=== PATIENT | female | born 1995 | race Caucasian/White ===

== ENCOUNTER 2022-12-01 06:00 | Day surgery (SDC) | payer MEDICAID, SELFPAY ==
--- NOTE | 2022-11-29 17:11 | PCM.HP.BLA ---
History and Physical Date of Admission: 12/01/22 Pre-Op History and Physical ? HPI: The patient is a 27 year old female presenting for pre-operative visit. She is scheduled for Bilateral labiaplasty, for Symptomatic labial hypertrophy on 12/01/22. Procedure discussed along with risks, benefits and complications. Other alternatives discussed for management. Consent form signed? Yes. ? ? PAST MEDICAL HISTORY PAST MEDICAL HISTORY Diagnosis Date ? Chronic ITP (idiopathic thrombocytopenia) (HCC) ? ? Concussion ? ? Hyperthyroidism ? ? ? PAST SURGICAL HISTORY PAST SURGICAL HISTORY Procedure Laterality Date ? NONE ? CURRENT MEDICATIONS Current Outpatient Medications Medication Sig Dispense Refill ? oxyCODONE IR (ROXICODONE) 5 mg immediate release tablet Take 1 tablet by mouth every 8 hours as needed for pain. 5 tablet 0 ? calcium citrate-vitamin D3 1,000 mg-10 mcg /30 mL liqd Take 15 mL three times daily 473 mL 3 ? levothyroxine (SYNTHROID) 88 mcg tablet TAKE 1 TABLET BY MOUTH ONCE DAILY AT 6 AM 90 tablet 0 ? calcium carbonate (TUMS) 500 mg chew Take 1 tablet by mouth every hour as needed (mouth or hand numbness or tingling). ? ? ? zkradaw-vyxfxfppn-ayqojnf D3 500 mg-5 mcg (200 unit) per tablet Take 1 tablet by mouth three times daily. ? ? ? No current facility-administered medications for this visit. ? ? ALLERGIES: Patient has no known allergies. ? PERSONAL HISTORY: SOCIAL HISTORY Social History ? Tobacco Use ? Smoking status: Never ? Smokeless tobacco: Never Vaping Use ? Vaping Use: Never used Substance Use Topics ? Alcohol use: Never ? Drug use: Never ? FAMILY HISTORY: FAMILY HISTORY FAMILY HISTORY Problem Relation Age of Onset ? Asthma Mother ? ? Thyroid Mother ? ? COPD Mother ? ? Diabetes Father ? ? other (thyroid) Father ? ? Heart Sister ? ? Thyroid Sister ? ? Diabetes Sister ? ? ? REVIEW OF SYMPTOMS: negative except as noted above PHYSICAL EXAMINATION: ? VITALS: Blood pressure 100/62, weight 123 lb (55.8 kg), last menstrual period 10/19/2022. ? GENERAL: The patient is well nourished, well hydrated in no acute distress. , The patient is oriented to time, place, and person. NECK: full range of motion LUNGS: Clear to auscultation bilaterally. no wheezes, rhonchi or rales HEART: Regular rate and rhythm, Normal heart sounds, and No murmurs or gallops ? ? IMPRESSION: 27yo with Symptomatic Labial hypertrophy ? PLAN: Bilateral labial hypertrophy ? Pt has been counseled on risks/benefits and alternatives of surgery including but not limited to anesthesia, bleeding, infection, formation of scar tissue, pain after surgery, dyspareunia. Discussed that we will try to make them as symmetrical as possible. Right labia more hypertrophied than the left. Patient wishes to proceed with surgery. Consent was signed. ? Oxycodone given for pain. We discussed pre and postop instructions. Discussed how to care for postoperative wound. Pressure and ice after procedure. ? CBC and HCG level today- missed menses. Dr. Das consulted regarding her ITP (after resulted CBC)- Agrees nothing pre or post op needs to be done as PLTS are wnl. ? ? I have reviewed and updated past medical and surgical history, medications and allergies Jaimie Augustin MD ?4:14 PM
[2022-12-01] VITALS (7 sets, daily range): BP systolic 87–116; BP diastolic 58–75; PULSE 53–73; RESP 16–18; TEMP 36.3–37.1; O2SAT 100; BMI 21.0
--- NOTE | 2022-12-01 | MISC_PTH ---
PATIENT: KIANA HASKINS LOC: [facility] [place] U#:[id number] AGE/SX: 27/F ROOM: RE12/01/[address]: Dr. Jaimie Aden, MDDOB: 1995 BED: DIS: 12/01/2022 SPEC #: [id number] RECD: 12/01/22 11:28 STATUS: FABY ELENA #: [id number] ULISSES: 12/01/22 00:[address]: Jaimie Aden DEPT: SURGICAL PATHOLOGY RECD BY: Dhaval Gupta ENTERED: 12/01/22 11:28 [place] [facility] [place]: Dr. Teddy Valenzuela MD Tissues: Lip, NOS (labia) Procedures: Surgery Specimen Level IV HEADER OPERATION: Labiaplasty PRE-OP DIAGNOSIS: Symptomatic labial hypertrophy TISSUE SUBMITTED: Bilateral labia MICROSCOPIC DIAGNOSIS Bilateral labia, labiaplasty: Pieces of skin with focal hyperkeratosis. JIAN:arely 12/02/2022 MICROSCOPIC DESCRIPTION Slides are reviewed. GROSS DESCRIPTION Received in fixative is one container labeled with the patient's name and designated bilateral labia. The specimen consists of two pieces of linder-light brown skin measuring 4.5 x 0.4 cm and up to 0.3 cm in thickness and 4.5 x 1.5 x 0.3 cm. No lesion is identified. Floor Helper sections are submitted in one cassette. / JIAN:arely 12/01/2022 TC:5 CPT: 87386
[2022-12-01] MEDS: Lactated Ringers 1,000 ML 15 ML IV (06:51)
[2022-12-01 06:58] LABS: Internal QC Validated? YES +Cl - CLEAR BKGD; Pregnancy, Urine Negative Negative
[2022-12-01] MEDS: Lidocaine 1% /Epi 1:100 (50ml) 50 ML VIAL (08:05)
--- NOTE | 2022-12-01 08:09 | DCINST_ITS ---
Discharge Instructions Diet Discharge Diet: No restrictions Activity Discharge Activity: Return to Normal Activity, May Shower and May Take a Tub Bath May resume sexual activity in: 2 weeks (after cleared by Dr. Augustin ) Lifting Restrictions: 25lb Dressing / Incision Call your doctor if your incision/area has: Continuous Slow Oozing, Sudden Increased Bleeding, Increased Pain/ Swelling, Increased Redness, Foul Smelling Discharge and Swelling at the incision site Call your doctor if you observe: Fever of 101 or Higher, Inability to urinate and Uncontrolled pain Cleanse incision/area with: Soap & Water Follow Up Care Please Follow Up With: Jaimie Aden MD When: as scheduled in 2 weeks Test Results: Test results from this visit will be discussed in further detail at your follow- up appointment, if applicable. Discharge Plan Admission Attending Provider: Jaimie Aden Primary Care Provider: Teddy Valenzuela Discharge Orders/Prescriptions Prescriptions: No Action calcium 600 mg Capsule 600 mg PO 4X/DAY levothyroxine 88 mcg tablet 88 mcg PO DAILY Label Comments: TAKE 1 TABLET BY MOUTH ONCE DAILY AT 6 AM cholecalciferol (vitamin D3) [Vitamin D3] 125 mcg (5,000 unit) Tablet 125 mcg PO DAILY Referrals / Follow Up: Teddy Valenzuela MD [Primary Care Provider] - Disposition Disposition (needs filled in before D/C Order can be placed): Home, Self Care
--- NOTE | 2022-12-01 08:11 | OP.PCM_ITS ---
Report of Operation Date of Procedure: 12/01/22 Pre-Operative Diagnosis: labial hypertrophy Post-Operative Diagnosis: same Surgery/Procedure Performed:: bilateral labial hypertrophy Description of Surgical Findings:: right labia larger then left Surgeon: Jaimie Aden Type of Anesthesia: Local and MAC Special Medications: 1% lidocaine with Epinephrine Specimen's removed: bilateral Labia minora Estimated Blood Loss (mL): 5cc Fluids Replaced: 600cc Description of Procedure: Pt was taken to the OR where MAC anesthesia was administered. pt was then placed in the [facility] stirrups. she was then prepped in normal sterile fashion. bladd er drained at beginning of procedure. Sterile drapes placed. At this time 1%lidocaine with epinephrine [id number] was injected on bilateral labia minora. At this time bilateral labia were marked. Allis clamps used to grasp tissue. Excess skin was then excised. The tissue will be sent to pathology for evualtion. at this time 3-0 rapide suture used to reapproximate bilateral labia minora edges in a running subcutaneous fashion. Excellent hemostasis appreciated. Lap, needle and instrument count were correct x 2. Vaginal sweep negative. Grafts/Implants Used: none Procedure Start Time: 07:40 Procedure Stop Time: 08:08 Complications none Admit VTE Documentation VTE Present on Admission: Yes VTE Mechan Device Prophylaxis: SCD's VTE Pharm Prophylaxis ordered?: No Reason prophylaxis not ordered:: Procedure Not Indicated
[2022-12-01] MEDS: HYDROcodone Bitartrate/Apap 5/325 Tablet PO (09:23)
--- NOTE | 2022-12-01 09:29 | SUR.PHASEII ---
pt dripping from left labia when got up to use bathroom. Dr Nova checked pt, pt bleeding has slowed down. instructed to hold pressure if is still bleeding.
== END 2022-12-01 09:52 | disposition home or self-care (01) ==
LOC: SDC 06:00 → AC 06:03
PROVIDERS: Anesthesiology; PCP Family Medicine; Referring Provider Obstetrics & Gynecology; Visit Provider Obstetrics & Gynecology
PROC: (CPT 56620; principal; 2022-12-01 07:15)
DX: N89.4 Leukoplakia of vagina (principal); Z79.899 Other long term (current) drug therapy
CPT/HCPCS: 56620; 00906; 81025; 88305; J7120; J2405